=== PATIENT | female | born 1975 ===

== ENCOUNTER 2016-03-29 21:09 | Emergency (ER) | payer SELFPAY ==
--- NOTE | 2016-03-29 21:48 | ERRECORD ---
[facility] EMERGENCY RECORD HPI URI (21:32 [facility]) CHIEF COMPLAINT: Patient presents for evaluation of sore throat, Patient presents for evaluation of nasal congestion, Patient presents for evaluation of cough. HISTORIAN: History provided by patient, 41F presents to the ED with complaints of one week of cough, nasal congestion, body aches, subjective fever, pleuritic pain during coughing, and fatigue. Denies headache, neck stiffness, dizziness, chest pain. Reports having similar symptoms one month ago. Tried taking antibiotics this week that a friend gave her but developed diarrhea. LOCATION: Symptoms are generalized. QUALITY: Pain is dull in nature, described as aching. TIME COURSE: Gradual onset of symptoms, There has been no change in the patient's symptoms over time. ASSOCIATED WITH: Associated with fever. EXACERBATED BY: Patient's condition exacerbated by deep breaths. RELIEVED BY: Patient's condition relieved by nothing because patient has not tried anything for relief. ROS (21:34 [facility]) CONSTITUTIONAL: Historian denies chills, reports fatigue, reports fever, reports lethargy. EYES: Negative eye review of systems, Historian denies eye pain, denies vision changes. ENT: Historian reports sore throat. CARDIOVASCULAR: Negative cardiovascular review of systems, Historian denies chest pain, denies palpitations. RESPIRATORY: Historian reports cough, reports sputum. GI: Negative gastrointestinal review of systems, Historian denies abdominal pain, denies constipation, denies diarrhea, denies nausea, denies vomiting. GENITOURINARY FEMALE: Negative genitourinary review of systems, Historian denies dysuria, denies frequency. MUSCULOSKELETAL: Negative musculoskeletal review of systems, Historian denies back pain, denies fall, denies injury. SKIN: Negative skin review of systems, Historian denies rash, denies skin changes. NEUROLOGIC: Negative neurologic review of systems, Historian denies headache, denies mental status changes, denies paralysis, denies paresthesias, denies sensory changes. HEMO/LYMPHATIC: Normal hematologic/lymphatic system review, Historian denies abnormal blood clotting. ALLERGIC/IMMUNOLOGIC: Normal allergy/immunologic system review, Historian denies frequent infections. PAST MEDICAL HISTORY (21:20 [facility]) MEDICAL HISTORY: Notes: "seasonal allergies" & "seasonal asthma", Flu vaccine not up to date, Tetanus &a-1R&a+25V*p+0X*[id number]*c202B*c15G*c2P*p-0X&a-25V&a+1R Name: Caitlin Orozco : 1975 F41 MedRec: [id number] AcctNum: [id number] Prepared: Gayatri Mar 29, 2016 21:41 by Interface Page 1 of 3 pMD [facility] EMERGENCY RECORD immunization up to date. FEMALE SURGICAL HISTORY: Surgical history of section, Surgical history of tubal ligation. PSYCHIATRIC HISTORY: No previous psychiatric history. SOCIAL HISTORY: Patient denies alcohol use, Patient denies drug use, Patient currently uses tobacco, smokes cigarettes, Patient smokes 1 pack per day. KNOWN ALLERGIES Penicillins CURRENT MEDICATIONS (21:21 [facility]) None VITAL SIGNS VITAL SIGNS: BP: 131/94, Pulse: 101, Resp: 18 (Non-Labored), Temp: 97.8 (Oral), Pain: 5, O2 sat: 97 on Room Air, Time: 03/29/2016 21:16. (21:16 [facility]) BP: 128/87, Pulse: 103, Resp: 19, O2 sat: 97 on Room Air, Time: 03/29/2016 21:26. (21:26 [facility]) PHYSICAL EXAM (21:34 [facility]) CONSTITUTIONAL: Vital signs reviewed, Patient afebrile, Pulse normal, Blood pressure normal, Respiratory rate normal, Patient appears non toxic, Patient appears pain free, Patient alert and oriented to person, place and time. HEAD: Head exam normal, Head exam included findings of head atraumatic, normocephalic. EYES: Eye exam normal, Eye exam included findings of eyelids normal to inspection, Pupils equally round and reactive to light, Extraocular muscles intact, no nystagmus. ENT: ENT exam normal, Ear exam normal, external ear normal, tympanic membranes normal, no bleeding, Pharynx exam normal, Uvula exam normal, Tonsil exam normal, Mouth exam normal, mucous membranes moist, teeth normal. NECK: Neck exam normal, Neck exam included findings of normal range of motion, Trachea midline, no meningeal signs, no cervical adenopathy, no tenderness. RESPIRATORY CHEST: Respiratory and chest exam normal, Respiratory exam included findings of no respiratory distress, Breath sounds clear. CARDIOVASCULAR: Cardiovascular assessment normal, Cardiovascular exam included findings of heart rate regular rate and rhythm, Heart sounds normal. ABDOMEN FEMALE: Abdominal exam included findings of abdomen nontender, Bowel sounds normal, no distension, no mass, no pulsatile masses, no peritoneal signs, no rigidity, no guarding, no rebound, Rovsing's sign absent. BACK: Back exam normal, Back exam included findings of normal inspection, range of motion normal, no tenderness. &a-1R&a+25V*p+0X*[id number]*c202B*c15G*c2P*p-0X&a-25V&a+1R Name: Caitlin Orozco : 1975 F41 MedRec: [id number] AcctNum: [id number] Prepared: [facility] Mar 29, 2016 21:41 by Interface Page 2 of 3 pMD [facility] EMERGENCY RECORD UPPER EXTREMITY: Upper extremity exam normal, Upper extremity exam included findings of inspection normal, Range of motion normal, Motor strength normal, Sensation intact, Radial pulse normal. LOWER EXTREMITY: Lower extremity exam normal, Lower extremity exam included findings of inspection normal, Range of motion normal, Motor strength normal, Sensation intact, Posterior tibial pulse normal, Pedal pulse normal. NEURO: Neuro exam normal, Neuro exam findings include patient oriented to person, place and time, Speech normal, Gait normal, Cranial nerves intact, no focal motor deficits, no focal sensory deficits. SKIN: Skin exam normal, Skin exam included findings of skin warm, dry, and normal in color, no rash. PSYCHIATRIC: Psychiatric exam normal, Normal affect. DOCTOR NOTES TEXT: Patient presented with signs and symptoms consistent with viral syndrome. well appearing, non-toxic patient without evidence of concerning bacterial illness such as meningitis or pneumonia that would require further workup or investigation. Considered pulmonary embolism due to smoking history and tachycardia, but believe the tachycardia is likely dehydration due to diarrhea and viral illness, and believe PE is less likely than viral infection. Tolerating oral intake without difficulty. Appropriate for outpatient management with oral fluids and antipyretics. Needs follow up with primary physician in the next 2-3 days for re-evaluation. (21:36 [facility]) PATIENT STATUS: Patient has improved since arrival to emergency department. (21:37 [facility]) PATIENT PLAN: The patient will be discharged, The patient will follow up with primary care physician. (21:37 [facility]) PROBLEM LIST No recorded problems DIAGNOSIS (21:31 [facility]) FINAL: PRIMARY: Viral infection. PRESCRIPTION No recorded prescriptions DISPOSITION PATIENT: Disposition Type: Discharge, Disposition: *Discharge Home. (21:31 [facility]) Patient left the department. (21:37 [facility]) Hodge: LUPIS=MD Ese, Ted PG[facility]=CHON Peck, Marychuy &a-1R&a+25V*p+0X*[id number]*c202B*c15G*c2P*p-0X&a-25V&a+1R Name: Caitlin Orozco : 1975 F41 MedRec: [id number] AcctNum: [id number] Prepared: Gayatri Mar 29, 2016 21:41 by Interface Page 3 of 3 pMD MTDD
--- NOTE | 2016-03-29 21:53 | PICIS ---
[facility] EMERGENCY RECORD TRIAGE (SatMar 29, 2016 21:18 [facility]) PATIENT: NAME: Caitlin Orozco, AGE: 41, GENDER: female, : Sat1975, TIME OF GREET: SatMar 29, 2016 21:10, PREFERRED LANGUAGE: Stateless, ECODE BILLING MAP: [facility], SSN: [id number], Zip Code: [address], KG WEIGHT: 117.03, , , PERSON ID: [id number], PCP: None. (SatMar 29, 2016 21:18 [facility]) PHONE: , PAYMENT: [employer] Self Pay. (21:23) TRIAGE NOTES: Congestion/body aches/cough with green sputum X1 month. (SatMar 29, 2016 21:18 [facility]) COMPLAINT: Congestion. (SatMar 29, 2016 21:18 [facility]) ADMISSION: URGENCY: 4 Non Urgent, ADMISSION SOURCE: Home, TRANSPORT: Walk-in, BED: TRIAGE. (SatMar 29, 2016 21:18 [facility]) TRIAGE SCREENING: Patient denies suicidal ideation, Patient denies presence of domestic violence. (21:20 [facility]) PROVIDERS: TRIAGE NURSE: Marychuy Peck RN. (SatMar 29, 2016 21:18 [facility]) VITAL SIGNS: BP 131/94, Pulse 101, Resp 18, (Non-Labored), Temp 97.8, (Oral), Pain 5, O2 Sat 97, on Room Air, Time 03/29/2016 21:16. (21:16 [facility]) KNOWN ALLERGIES Penicillins CURRENT MEDICATIONS (21:21 [facility]) None VITAL SIGNS VITAL SIGNS: BP: 131/94, Pulse: 101, Resp: 18 (Non-Labored), Temp: 97.8 (Oral), Pain: 5, O2 sat: 97 on Room Air, Time: 03/29/2016 21:16. (21:16 [facility]) BP: 128/87, Pulse: 103, Resp: 19, O2 sat: 97 on Room Air, Time: 03/29/2016 21:26. (21:26 [facility]) NURSING ASSESSMENT: RESPIRATORY /CHEST (21:21 [facility]) CONSTITUTIONAL: Patient arrives ambulatory, Gait steady, History obtained from patient, Patient appears comfortable, Patient cooperative, Patient alert, Oriented to person, place and time, Skin warm, Skin dry, Skin normal in color, Mucous membranes pink, Mucous membranes moist, Patient complains of congestion/body aches, patient arrives to ER c/o congestion X1 month with body aches. Denies chest pain/sob. States she has been coughing up green mucous. Tried her friends abx at home for 8 days-unable to recall the name-but they have not helped. states no medical hx besides allergies "I get this every year but I can't afford the medication so I usually just let it go away but I'm sick of coughing so I came". denies ear pain/nausea/vomiting/sore throat. states highest fever at home was 102 oral. PAIN: aching pain, ALL OVER BODY, on a scale 0-10 patient rates pain as 5, Nothing has been tried to &a-1R&a+25V*p+0X*p1531A*c202B*c15G*c2P*p-0X&a-25V&a+1R Name: Caitlin Orozco : 1975 F41 MedRec: [id number] AcctNum: [id number] Prepared: Gayatri Mar 29, 2016 21:48 by Interface Page 1 of 5 pMD [facility] EMERGENCY RECORD alleviate the pain. RESPIRATORY/CHEST: Lungs auscultated, Breath sounds with wheezing, to bilateral lower lobes, Respiratory assessment findings include respiratory effort easy, Respirations regular, Conversing normally, Neck and chest exam findings include trachea midline, Chest expansion equal, Chest movement symmetrical, no signs of distress, no retractions noted, no cyanosis, no jugular vein distension, no tenderness to palpation, no crepitus noted, no subcutaneous emphysema noted, no deformity noted, Associated with cough, productive of, green sputum, Associated with fever, Maximum temperature 102, oral. ENT: Ear assessment findings include ear normal to inspection, Nasal assessment findings include nose normal to inspection, Mouth and throat assessment findings include mouth inspection normal. SAFETY: Side rails up, Cart/Stretcher in lowest position, Family at bedside, Call light within reach, Hospital ID band on. NURSING PROCEDURE: DISCHARGE NOTE (21:36 [facility]) DISCHARGE: Patient discharged to home, ambulating without assistance, driving self, accompanied by //partner, Summary of Care printed/ provided, Patient requested and was provided an electronic copy of Discharge Instructions, Transition record given to patient, Discharge instructions given to patient, Patient treated and evaluated by physician. BELONGINGS: Belongings and valuables with patient upon arrival to the Emergency Department include:, Belongings and valuables with patient at time of discharge include:, Belongings remain with patient, Valuables remain with patient. SAFETY: Side rails up, Cart/Stretcher in lowest position, Family at bedside, Call light within reach, Hospital ID band on. HPI URI (21:32 [facility]) CHIEF COMPLAINT: Patient presents for evaluation of sore throat, Patient presents for evaluation of nasal congestion, Patient presents for evaluation of cough. HISTORIAN: History provided by patient, 41F presents to the ED with complaints of one week of cough, nasal congestion, body aches, subjective fever, pleuritic pain during coughing, and fatigue. Denies headache, neck stiffness, dizziness, chest pain. Reports having similar symptoms one month ago. Tried taking antibiotics this week that a friend gave her but developed diarrhea. LOCATION: Symptoms are generalized. QUALITY: Pain is dull in nature, described as aching. TIME COURSE: Gradual onset of symptoms, There has been no change in the patient's symptoms over time. ASSOCIATED WITH: Associated with fever. EXACERBATED BY: Patient's condition exacerbated by deep breaths. RELIEVED BY: Patient's condition relieved by nothing &a-1R&a+25V*p+0X*[id number]*c202B*c15G*c2P*p-0X&a-25V&a+1R Name: Caitlin Orozco : 1975 F41 MedRec: [id number] AcctNum: [id number] Prepared: SatMar 29, 2016 21:48 by Interface Page 2 of 5 pMD [facility] EMERGENCY RECORD because patient has not tried anything for relief. ROS (21:34 [facility]) CONSTITUTIONAL: Historian denies chills, reports fatigue, reports fever, reports lethargy. EYES: Negative eye review of systems, Historian denies eye pain, denies vision changes. ENT: Historian reports sore throat. CARDIOVASCULAR: Negative cardiovascular review of systems, Historian denies chest pain, denies palpitations. RESPIRATORY: Historian reports cough, reports sputum. GI: Negative gastrointestinal review of systems, Historian denies abdominal pain, denies constipation, denies diarrhea, denies nausea, denies vomiting. GENITOURINARY FEMALE: Negative genitourinary review of systems, Historian denies dysuria, denies frequency. MUSCULOSKELETAL: Negative musculoskeletal review of systems, Historian denies back pain, denies fall, denies injury. SKIN: Negative skin review of systems, Historian denies rash, denies skin changes. NEUROLOGIC: Negative neurologic review of systems, Historian denies headache, denies mental status changes, denies paralysis, denies paresthesias, denies sensory changes. HEMO/LYMPHATIC: Normal hematologic/lymphatic system review, Historian denies abnormal blood clotting. ALLERGIC/IMMUNOLOGIC: Normal allergy/immunologic system review, Historian denies frequent infections. PAST MEDICAL HISTORY (21:20 [facility]) MEDICAL HISTORY: Notes: "seasonal allergies" & "seasonal asthma", Flu vaccine not up to date, Tetanus immunization up to date. FEMALE SURGICAL HISTORY: Surgical history of section, Surgical history of tubal ligation. PSYCHIATRIC HISTORY: No previous psychiatric history. SOCIAL HISTORY: Patient denies alcohol use, Patient denies drug use, Patient currently uses tobacco, smokes cigarettes, Patient smokes 1 pack per day. PHYSICAL EXAM (21:34 [facility]) CONSTITUTIONAL: Vital signs reviewed, Patient afebrile, Pulse normal, Blood pressure normal, Respiratory rate normal, Patient appears non toxic, Patient appears pain free, Patient alert and oriented to person, place and time. HEAD: Head exam normal, Head exam included findings of head atraumatic, normocephalic. EYES: Eye exam normal, Eye exam included findings of eyelids normal to inspection, Pupils equally round and reactive to light, Extraocular muscles intact, no nystagmus. &a-1R&a+25V*p+0X*u8085U*c202B*c15G*c2P*p-0X&a-25V&a+1R Name: Caitlin Orozco : 1975 F41 MedRec: [id number] AcctNum: [id number] Prepared: [facility] Mar 29, 2016 21:48 by Interface Page 3 of 5 pMD [facility] EMERGENCY RECORD ENT: ENT exam normal, Ear exam normal, external ear normal, tympanic membranes normal, no bleeding, Pharynx exam normal, Uvula exam normal, Tonsil exam normal, Mouth exam normal, mucous membranes moist, teeth normal. NECK: Neck exam normal, Neck exam included findings of normal range of motion, Trachea midline, no meningeal signs, no cervical adenopathy, no tenderness. RESPIRATORY CHEST: Respiratory and chest exam normal, Respiratory exam included findings of no respiratory distress, Breath sounds clear. CARDIOVASCULAR: Cardiovascular assessment normal, Cardiovascular exam included findings of heart rate regular rate and rhythm, Heart sounds normal. ABDOMEN FEMALE: Abdominal exam included findings of abdomen nontender, Bowel sounds normal, no distension, no mass, no pulsatile masses, no peritoneal signs, no rigidity, no guarding, no rebound, Rovsing's sign absent. BACK: Back exam normal, Back exam included findings of normal inspection, range of motion normal, no tenderness. UPPER EXTREMITY: Upper extremity exam normal, Upper extremity exam included findings of inspection normal, Range of motion normal, Motor strength normal, Sensation intact, Radial pulse normal. LOWER EXTREMITY: Lower extremity exam normal, Lower extremity exam included findings of inspection normal, Range of motion normal, Motor strength normal, Sensation intact, Posterior tibial pulse normal, Pedal pulse normal. NEURO: Neuro exam normal, Neuro exam findings include patient oriented to person, place and time, Speech normal, Gait normal, Cranial nerves intact, no focal motor deficits, no focal sensory deficits. SKIN: Skin exam normal, Skin exam included findings of skin warm, dry, and normal in color, no rash. PSYCHIATRIC: Psychiatric exam normal, Normal affect. EVENTS TRANSFER: Triage to Emergency Triage. ([facility] Mar 29, 2016 21:18 [facility]) Emergency Triage to Emergency Room -02. (21:18 [facility]) Removed from Emergency Emergency Room -02. (21:37 [facility]) DOCTOR NOTES TEXT: Patient presented with signs and symptoms consistent with viral syndrome. well appearing, non-toxic patient without evidence of concerning bacterial illness such as meningitis or pneumonia that would require further workup or investigation. Considered pulmonary embolism due to smoking history and tachycardia, but believe the tachycardia is likely dehydration due to diarrhea and viral illness, and believe PE is less likely than viral infection. Tolerating oral intake without difficulty. Appropriate for outpatient management with oral fluids and antipyretics. Needs follow up with &a-1R&a+25V*p+0X*r1213F*c202B*c15G*c2P*p-0X&a-25V&a+1R Name: Caitlin Orozco : 1975 1 MedRec: [id number] AcctNum: [id number] Prepared: SatMar 29, 2016 21:48 by Interface Page 4 of 5 pMD [facility] EMERGENCY RECORD primary physician in the next 2-3 days for re-evaluation. (21:36 [facility]) PATIENT STATUS: Patient has improved since arrival to emergency department. (21:37 [facility]) PATIENT PLAN: The patient will be discharged, The patient will follow up with primary care physician. (21:37 [facility]) PROBLEM LIST No recorded problems DIAGNOSIS (21:31 [facility]) FINAL: PRIMARY: Viral infection. DISPOSITION PATIENT: Disposition Type: Discharge, Disposition: *Discharge Home. (21:31 [facility]) Patient left the department. (21:37 [facility]) INSTRUCTION (21:32 [facility]) DISCHARGE: URI, VIRAL, NO ABX (ADULT). SPECIAL: Drink more fluids. Try and smoke less. Follow up with a regular doctor. Return to the ED if you get worse. PRESCRIPTION No recorded prescriptions IMAGING (21:36 [facility]) *SUPPLY CHARGE SHEET: Image captured from scanner. *DISCHARGE INSTRUCTIONS RECEIPT: Image captured from scanner. ADMIN (21:37 [facility]) DIGITAL SIGNATURE: MD Mulligan Jason. Hodge: LUPIS=MD Mulligan Jason PGRI=CHON Peck, [facility] &a-1R&a+25V*p+0X*g9777U*c202B*c15G*c2P*p-0X&a-25V&a+1R Name: Caitlin Orozco : 1975 F41 MedRec: [id number] AcctNum: [id number] Prepared: SatMar 29, 2016 21:48 by Interface Page 5 of 5 pMD MTDD
== END 2016-03-29 21:35 | disposition home or self-care (01) ==
LOC: BURERS 21:09
DX: B34.9 Viral infection, unspecified (principal); F17.210 Nicotine dependence, cigarettes, uncomplicated
CPT/HCPCS: 99282